=== PATIENT | female | born 1995 | race Caucasian/White ===

== ENCOUNTER 2017-05-02 17:37 | Emergency (ER) | payer BC ==
[~2017-05-02] VITALS: Ht 175.3 cm; Wt 63.0 kg
[2017-05-02 18:05] VITALS: BP 131/86; PULSE 76; TEMP 36.9; O2SAT 99; Ht 175.3 cm; Wt 63.0 kg
--- NOTE | 2017-05-02 18:57 | DIAGNOSTIC IMAGING REPORT ---
R ANKLE MIN 3 VIEWS ROUTINE CLINICAL HISTORY: Right ankle pain status post trauma COMPARISON: None. DISCUSSION: No fractures or dislocations are visualized. The ankle mortise appears intact. There is a very subtle lucency within the distal tibial diaphysis. This has a sclerotic margin and appears nonaggressive. IMPRESSION: No fractures or dislocations identified. Electronically signed by: Mesfin Garcia M.D. 05/02/2017 6:56 PM Dictated Date/Time: 05/02/2017 6:55 PM
[2017-05-02] MEDS ORDERED: IBUPROFEN 600 MG TAB PO STA (18:59)
--- NOTE | 2017-05-03 14:30 | EMERGENCY ROOM VISIT NOTE ---
ED Visit Note First contact with patient: 18:17 Chief Complaint: I rolled my right ankle. History of Present Illness: Ms. Lincoln is a 21-year-old white female who ambulates into the ED accompanied by a female friend complaining of right lateral ankle pain. Historically patient reports she severely injured her right ankle this summer but did not seek medical attention. She reports since that injury she has had continued lateral right ankle swelling and pain on a daily basis for the last 3 months. Patient reports approximately 5 hours ago she was hiking, lost her balance and rolled her right ankle. Since that time she reports she has been having pain over the lateral malleolus area. She describes the pain as a throbbing and a sharp discomfort. She rates her discomfort 8/10. She denies true radiation of pain but does report into the foot she has a "stiffness sensation." Her pain worsens with ambulation, inversion and plantar flexion. She has not identified any alleviating factors related to the pain. She has not taken any medications for pain prior to arrival at the hospital. Patient denies any associated symptoms including hip pain, knee pain, lower leg pain, foot pain, leg weakness/ numbness/tingling. Review of Systems: As noted above in history of present illness. Past Medical History: Unspecified skin disorder. Current Medications: Patient denies. Allergies to Medications: Patient denies. Social History: Patient is currently employed; she feels safe in her home environment; she denies tobacco use; she admits to alcohol use. Physical Examination: Vital Signs: Date Time Temp Pulse Resp B/P (MAP) Pulse Ox O2 Delivery O2 Flow Rate FiO2 05/02/17 18:05 36.9 76 16 131/86 99 Room Air GENERAL: 21-year-old female in mild to moderate distress due to pain, nontoxic- appearing, afebrile and hemodynamically stable. NEUROLOGICAL: Awake, alert and oriented to person, place and time. Answering questions appropriately and following commands. SKIN: Warm, dry and pink. No soft tissue eruptions or trauma noted. RIGHT LOWER EXTREMITY: No gross bony deformity. No tenderness in the hip, knee , lower leg or foot. Moderate tenderness and swelling over the lateral aspect of the ankle including the malleolus and all the surrounding ligamentous structures. There is no ecchymosis or bony crepitus or deformity. Patient's ligamentous testing was difficult due to her pain and swelling and I feel is unreliable. She had decreased range of motion in all movements of the ankle due to pain. She was able to flex and extend all toes without difficulty. Throughout the foot the skin was warm and pink and capillary refill is brisk. She was able to distinguish light sensations through all dermatomes of the foot. ED Course: Patient is assessed as noted above. Patient's medication list was reviewed. Patient was given ice and 600 mg of ibuprofen by mouth for pain. Right Ankle X-Rays: Were read by myself and the radiologist showing no acute fractures or dislocations. The ankle mortise appears intact. Radiologist does note a very subtle lucency within the distal tibia diaphysis and this has sclerotic margin and appears nonaggressive. Patient was placed in a gel splint and on nonweightbearing crutches. Patient was educated about today's findings and instructed on her treatment plan ; she verbalized understanding and agreement with this plan. Clinical Impression: Acute right ankle pain. Probable sprain. Decision-Making: Initially my differential diagnosis I considered fracture, sprain, contusion and other causes. Disposition: Patient discharged home in stable condition accompanied by 2 friends; prior to departure she was reassessed and subjectively reported she was feeling much better and rated her discomfort 2/10. Plan: Comfort measures were discussed with the patient including rest, ice, elevation , gel splint and crutches and alternating ibuprofen and acetaminophen as needed for pain. Because of her proceeding injury and her constant swelling and pain I did encourage her to follow-up with orthopedics for definitive care and treatment. Patient was encouraged return the ED for worsening/uncontrolled pain, uncontrolled swelling, foot weakness/numbness/tingling or any new/concerning symptoms.
== END 2017-05-02 19:40 | disposition home or self-care (01) ==
LOC: C.EDB 17:39 → C.EDD 19:40
DX: M25.571 Pain in right ankle and joints of right foot (principal); X50.9XXA Other and unspecified overexertion or strenuous movements or postures, initial encounter

== ENCOUNTER 2017-09-28 22:48 | Emergency (ER) | payer BC ==
[~2017-09-28] VITALS: Ht 172.7 cm; Wt 63.7 kg
[2017-09-28 22:51] VITALS: TEMP 36.7; Ht 172.7 cm; Wt 63.7 kg
[2017-09-28] MEDS ORDERED: PHEN-876 PO (23:09)
[2017-09-28] MEDS ORDERED: SULF800T23 PO (23:09)
[2017-09-28] MEDS ORDERED: PHENAZOPYRIDINE HOME PACK 200 MG VIAL PO ONE (23:15)
[2017-09-28] MEDS ORDERED: SEPTRA DS HOME PACK 1 EA VIAL PO ONE (23:15)
[2017-09-28 23:16] VITALS: BP 140/90; PULSE 88; O2SAT 98
--- NOTE | 2017-09-28 23:48 | EMERGENCY ROOM VISIT NOTE ---
ED Visit Note First contact with patient: 22:54 CHIEF COMPLAINT: Frequent and painful urination HISTORY OF PRESENT ILLNESS: This 22-year-old female presents to the emergency department complaining of increased frequency of urination, burning pain with urination, and a feeling of incomplete voiding for the past 6 hours. The patient passes very small volumes of urine with each episode of voiding. The patient does not have abdominal pain. They deny back pain, fever, or vaginal discharge. The patient has had frequent urinary tract infections in the past. Patient feels they are not at risk for STIs. REVIEW OF SYSTEMS: A 6 system review of systems was completed with positives and pertinent negatives listed in the HPI. ALLERGIES: No known allergies MEDICATIONS: No chronic medication PMH: Otherwise healthy SOCIAL HISTORY: [employer] student who lives locally PHYSICAL EXAM: Vital Signs: Reviewed Nurse's notes, vital signs stable. GENERAL : White female, in no acute distress, they do not appear toxic, well-developed, well-nourished. HEART: Regular rate and rhythm without murmur gallop or rub LUNG : Clear to auscultation bilateral ABDOMEN: Positive bowel sounds x 4. The abdomen is soft, mildly tender in the suprapubic area, but no masses or organs are felt. There is mild CVA tenderness. The skin is clear. NEURO: Alert and oriented to person place and time. EMERGENCY DEPARTMENT COURSE: Physical exam and history are performed. Nursing notes and EMR were reviewed. The patient appears to have UTI symptoms for the past several hours. Urine dip was collected and is quite concerning for UTI. She is not . The patient will be started on Bactrim and Pyridium pending culture. She is to follow with her primary care physician with any ongoing or persisting symptoms. She was otherwise invited back to the ER with any new, worsening, or concerning episodes. Current/Historical Medications Scheduled Phenazopyridine HCl (Pyridium), 200 MG PO TID Sulfamethoxazole-Trimethoprim (Bactrim Ds 800MG/160MG), 1 TAB PO BID Allergies Coded Allergies: No Known Allergies (Unverified , 09/28/17) Vital Signs Date Time Temp Pulse Resp B/P (MAP) Pulse Ox O2 Delivery O2 Flow Rate FiO2 09/28/17 23:16 88 18 140/90 98 09/28/17 22:51 36.7 88 18 140/90 98 Room Air Laboratory Results Test 09/28/17 23:00 Urine Color YELLOW Urine Appearance CLEAR (CLEAR) Urine pH 6.5 (4.5-7.5) Urine Specific [place] 1.022 (1.000-1.030) Urine Protein 3+ (NEG) Urine Glucose (UA) NEG (NEG) Urine Ketones NEG (NEG) Urine Occult Blood 2+ (NEG) Urine Nitrite NEG (NEG) Urine Bilirubin NEG (NEG) Urine Urobilinogen NEG (NEG) Urine Leukocyte Esterase TRACE (NEG) Urine Test NEG (NEG) Medications Administered Medications (Trade) Dose Ordered Sig/Haile Route Start Time Stop Time Status Last Admin Dose Admin Trimethoprim/ Sulfamethoxazole (Sulfameth/ Trimeth Ds 800/ 160MG Home Pack) 1 homepack UD ONCE PO 09/28/17 23:15 09/28/17 23:16 DC 09/28/17 23:11 1 HOMEPACK Phenazopyridine HCl (Phenazopyridine HCl 200MG Home Pack) 1 homepack UD ONCE PO 09/28/17 23:15 09/28/17 23:16 DC 09/28/17 23:12 1 HOMEPACK Departure Information Impression Primary Impression: Hemorrhagic cystitis Dispostion Home / Self-Care Condition GOOD Prescriptions Phenazopyridine HCl (Pyridium) 200 Mg Tab 200 MG PO TID for Bladder Pain, #6 TAB Prov: John Bartlett PA-C 09/28/17 Sulfamethoxazole-Trimethoprim (Bactrim Ds 800MG/160MG) 1 Tab Tab 1 TAB PO BID for 9 Days, #18 TAB Prov: John Bartlett PA-C 09/28/17 Referrals No Doctor, Assigned [facility] (PCP) Forms HOME CARE DOCUMENTATION FORM, IMPORTANT VISIT INFORMATION Patient Instructions [facility] Additional Instructions You were seen and evaluated today on an emergency basis only. This is not a substitute for, or an effort to provide, complete comprehensive medical care. It is not possible to recognize and treat all injuries or illnesses in a single emergency department visit. For this reason it is recommended that you followup with your primary care physician with any ongoing or persisting symptoms. Trimethoprim-Sulfamethoxazole(Bactrim DS): Take one pill twice daily for 10 days for your urine infection. All antibiotics can cause diarrhea. If this occurs and you feel worse or it does not resolve in 1-2 days follow up with your doctor or return to the Emergency Department as this could be signs of serious underlying problems. Any medication can cause an allergic reaction, stop the pills immediately and return to the ER for rash, hives, breathing difficulties, or swelling. Use Pyridium 3 times daily as needed. This will change the color of your urine to orange. This is normal. The Pyridium will help with bladder pain. You are welcome to return to the emergency department anytime with new, worsening, or concerning symptoms.
--- NOTE | 2017-10-01 15:11 | Pharmacy Progress Note ---
ED Pharmacist Culture FollowUp Date of Service: Oct 01, 2017. Patient was sent home with a prescription for Bactrim, which should cover the E. coli growing from the patient's urine culture.
== END 2017-09-28 23:17 | disposition home or self-care (01) ==
LOC: C.EDB 22:49 → C.EDA 23:17
DX: N30.91 Cystitis, unspecified with hematuria (principal)